=== PATIENT | male | born 1990 | race American Indian/Alaskan Native ===

== ENCOUNTER 2019-02-17 20:39 | Emergency (ER) | payer OTHER ==
[2019-02-17] MEDS ORDERED: NACL 0.9% 1000 ML 1,000 ML IV ONE (20:58)
[2019-02-17] MEDS ORDERED: SUBLIMAZE IV ONE (20:58)
[2019-02-17] MEDS ORDERED: ZOFRAN IV ONE (20:58)
[2019-02-17] MEDS ORDERED: BOOSTRIX IM ONE (20:58)
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
[2019-02-17 21:34] LABS: Basophils % (Auto) 0.5 % (0.0-1.8); Eosinophils % (Auto) 0.4 % (0.0-4.3); Hematocrit 46.8 % (35.5-45.6); Lymphocytes # (Auto) 2.7 K/mm3 (1.2-5.4); Lymphocytes % (Auto) 32.5 % (13.4-35.0); Mean Corpuscular HGB Conc 34 % (32-34); Mean Corpuscular Volume 90 fl (84-94); Monocytes # (Auto) 0.6 K/mm3 (0.0-0.8); Monocytes % (Auto) 7.2 % (0.0-7.3); Platelet Count 275 K/mm3 (140-440); Red Blood Count 5.22 M/mm3 (3.65-5.03); Red Cell Distribution Width 13.3 % (13.2-15.2)
[2019-02-17 21:43] LABS: INR 1.06 (0.87-1.13); Partial Thromboplastin Time 26.4 Sec. (24.2-36.6)
[2019-02-17 22:02] LABS: Alanine Aminotransferase 14 units/L (7-56); Albumin 4.7 g/dL (3.9-5); BUN/Creatinine Ratio 8; Blood Urea Nitrogen 7 mg/dL (9-20); Hemolysis Index 26
[2019-02-17] MEDS ORDERED: XYLOCAINE 1%/ EPI 1:100,000 INFILTRATI ONE (23:10)
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
[2019-02-17] MEDS ORDERED: NACL 0.9% 500 ML IR ONE (23:49)
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
[2019-02-18] MEDS ORDERED: TRIPLE ANTIBIOTIC TP ONE (00:07)
[2019-02-18 00:46] VITALS: BP 103/52
[2019-02-18] MEDS ORDERED: XYLOCAINE 1%/ EPI 1:100,000 INFILTRATI NR (01:00)
== END 2019-02-18 00:46 ==
LOC: EEVIPCON 20:39 → ED 20:39
DX: S01.81XA Laceration without foreign body of other part of head, initial encounter (principal); F17.210 Nicotine dependence, cigarettes, uncomplicated; V47.0XXA Car driver injured in collision with fixed or stationary object in nontraffic accident, initial encounter; Y93.89 Activity, other specified; Y92.410 Unspecified street and highway as the place of occurrence of the external cause; Y99.8 Other external cause status
CPT/HCPCS: 12011; 36415; 70450; 70486; 72125; 74177; 80053; 85025; 85610; 85730; 86850; 86900; 86901; 90471; 90715; 96374; 96375; 99284; J2405; J3010; J7030; Q9967; A6250